=== PATIENT | female | born 1930 | race Caucasian/White ===

== ENCOUNTER → 2016-07-25 | Outpatient (CLI) | payer OTHER, BC ==
[~2016-07-25] MED LIST: CIPROFLOXACIN500 M1 PO; COSOPT EYE DROPS5 ML; DITROPAN PO; LORTAB 5 MG/5001 TA1 PO; OXYBUTYNIN 5 MG5 M1 PO; TRAVATAN 0.004%5 ML; ZANTAC 150MG T150 M1 PO
== END ==
LOC: CAT 10:30
DX: N20.1 Calculus of ureter (principal); R10.30 Lower abdominal pain, unspecified

== ENCOUNTER → 2017-01-01 | Outpatient (CLI) | payer OTHER, BC | LOC: LABMALL 08:45 | DX: D42.9 Neoplasm of uncertain behavior of meninges, unspecified (principal) ==

== ENCOUNTER → 2018-11-12 | Outpatient (CLI) | payer OTHER, BC ==
[~2018-11-12] VITALS: Ht 157.5 cm; Wt 68.0 kg
[~2018-11-12] MED LIST changes: +ALEVE220 MG PO; +COMBIGAN EYE DR10 ML OPHTHALMIC; +ESTRADIOL42.5 GM VAG; +TEMOVATE15 GM TOP; +TRAMADOL 50 MG50 MG PO; +TRAVATAN Z2.5 ML OPHTHALMIC; +ZOVIRAX TOP
--- NOTE | ~2018-11-12 | HPC ---
[facility] [address] [place] [address] PAIN MANAGEMENT CONSULTATION Name: RONALD NOYOLA Room #: REG HUAN Abdias.#: [id number] Admission: 11/12/18 Attend Phys: Roberto Hardwick DO Discharge: Date of : 32 Report #: [id number] THIS REPORT FOR: //name// CC: Luis Felipe Hardwick DATE OF SERVICE: 11/12/2018 REFERRING PHYSICIAN: AVA Vasquez at Neurosurgery. CHIEF COMPLAINT: Neck pain, bilateral upper extremity pain with paresthesias. HISTORY OF PRESENT ILLNESS: As you know, the patient is a very pleasant 88-year-old female who has been referred to our service to discuss treatment options for cervical radiculopathy involving the cervical spine, bilateral upper extremities. The patient indicates pain began somewhere in 10/2017 progressively worsened. 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 She has trialled conservative treatment options, sought physical therapy treatment without improvement. After continued issues with ongoing neck and upper extremity symptoms, she was subsequently referred to see Neurosurgery. She was advised that her symptoms appear to be related to a chronic cervical radiculopathy involving C6 dermatomal distribution and was subsequently referred to our clinic for possible cervical epidural injections. She indicates today pain is continuous, describes the pain as aching, numbness and tingling. Places current pain score 3/10, daily average at 3/10, worst pain has been is 7/10. The patient states that the pain is exacerbated with moving her neck, trying to text using her hands or using her fingers and improves with distraction techniques and repositioning. She has been referred to our service to discuss treatment options for cervical radiculopathy. PAST MEDICAL HISTORY: 1. Rheumatoid arthritis. 2. Gastroesophageal reflux disease. 3. History of cataracts. 4. Glaucoma. 5. Brain neoplasm. 6. Herpes simplex. 7. Lichen sclerosus. 8. Osteoarthritis. PAST SURGICAL HISTORY: 1. section x 3. 2. Cholecystectomy. [address] [address] PAIN MANAGEMENT CONSULTATION Name: RONALD NOYOLA [id number] Admission: 11/12/18 Attend Phys: Roberto Hardwick DO Discharge: Date of : 32 Report #: [id number] 3. Hysterectomy. SOCIAL HISTORY: The patient reports she is a nonsmoker. Denies IV or illicit drug use. Denies any chronic alcohol use. 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 She has been out of work for approximately 20 years. She is not receiving workmen's compensation or is trying to obtain disability benefits. She is accompanied today by a family member. REVIEW OF SYSTEMS: Positive for eye disease, wearing corrective eyewear, cataracts and glaucoma, hearing loss with tinnitus, shortness of breath, walking or lying flat, nocturia, numbness and tingling sensations and chronic neck pain. All other review of systems negative per 12-point review of systems other than those listed in history of present illness. Pain impact score 35/70 indicating moderate interference of daily activities secondary to pain. ALLERGIES: LATEX. CURRENT MEDICATIONS: Travatan one drop each eye per day, Aleve 220 mg once a day, Zovirax ointment apply topically 4 times a day, esterase 0.1 mg applied as directed. Tramadol 50 mg one tab p.o. every 8 hours p.r.n. for pain. IMAGING: MRI cervical spine obtained 08/20/2018 shows degenerative changes throughout the cervical spine. Findings result in mild central canal stenosis at the C5-C6 level, mild right greater than left central canal stenosis at C6-C7, mild left greater than right central canal stenosis at C7-T1. There is a [id number] bilateral neural foraminal stenosis of C5-C6 level, same at C6-C7. PQRS: The patient has known arthritic changes of the cervical spine, lumbar spine. No rheumatoid arthritis, placing pain intensity 3/10. She is a fall risk, but has not had a fall in last 3 months. She is not on blood thinners. She is treated for hypertension. She is not on chronic opioids. She has a low opioid addiction potential. Pain impact score 35/70, moderate interference of daily activities secondary to pain. PHYSICAL EXAMINATION: VITAL SIGNS: Blood pressure 154/71, pulse 70, respiratory rate 16 and unlabored. The patient is 98% on room air. Height 5 feet 2 inches tall, weight 150 pounds, BMI calculated 27.4. GENERAL: Well-developed, well-nourished, well-hydrated 88-year-old female appearing stated age, pain is rated today at around 3/10. HEENT: Normocephalic, atraumatic. Pupils equal, round, reactive to light. Extraocular muscles are intact. Sclerae nonicteric without injection. NEUROLOGIC: Cranial nerves 2-12 grossly intact. Speech fluent. The patient deemed a good historian. LUNGS: Clear, no wheeze, rhonchi or rales. [address] [address] PAIN MANAGEMENT CONSULTATION Name: RONALD NOYOLA Room #: REG HUAN Joseph#: [id number] Admission: 11/12/18 Attend Phys: Roberto Hardwick DO Discharge: Date of : 32 Report #: [id number] CARDIOVASCULAR: Regular. No appreciable gallop, no rub. ABDOMEN: Soft, nontender, nondistended, normoactive bowel sounds. EXTREMITIES: Show no clubbing, no cyanosis, no edema. MUSCULOSKELETAL: Upper extremity strength appears equal and symmetrical 5/5. She is intact to light touch from C5-T1 dermatomes. She has decreased reflexes, but symmetrical at biceps, brachialis and triceps. Spurling's test is positive. Cervical provocation testing is met with increasing axial neck pain. No cervical radicular component with passive and active range of motion of the cervical region. Director [employer] strength is mildly reduced over the C6 myotome. ASSESSMENT: 1. Cervical radiculopathy. 2. Neural foraminal stenosis of the cervical spine. 3. Cervical facet arthropathy. 4. Cervical spondylosis with radiculopathy. PLAN: 1. Based on today's physical exam and history the patient has provided, the description the patient uses in regards to pain as well as the distribution of symptoms she is experiencing and the findings of the recent imaging likely source of the patient's pain is cervical radiculopathy. We discussed with the patient treatment options for cervical radiculopathy. The following was discussed with the patient today. These are very similar to the patient's discussions had with her neurosurgery team at their visit. We discussed physical therapy, stretching exercises and traction techniques as an option for treatment. This in conjunction with ultrasound and electrical stimulation can improve cervical symptoms both from the myofascial standpoint and from the radicular standpoint. We discussed medication management adding neuropathic pain medications and a consistent nonsteroidal anti-inflammatory. We discussed cervical epidural injections for which the patient was referred to our clinic by the Neurosurgery team as well as the surgical options they have discussed in the past. After reviewing the risks and benefits of all the proposed treatment options, the patient chose to remain with conservative treatment trying physical therapy, traction techniques and ultrasound, electrical stimulation techniques. 2. The patient was provided a prescription for physical therapy to begin 3 times a week for 6 weeks. We recommend cervical provocation treatments as well as traction techniques to address cervical radiculopathy. We are also allowing for electrical stimulation and ultrasound to be added to improve overall symptoms. The patient will begin the physical therapy as quickly as possible, review the efficacy at followup visit that we have established in 1 month. I did advise the patient if her symptoms do not improve or her symptoms tend to progress, she can contact our clinic for an earlier return and possible cervical epidural injection. [address] [address] PAIN MANAGEMENT CONSULTATION Name: RONALD NOYOLA Yulissa Room #: REG CLI Jake#: [id number] Admission: 11/12/18 Attend Phys: Roberto Hardwick DO Discharge: Date of : 32 Report #: [id number] 3. We wish to thank nurse practitioner, Irma Serrano for the opportunity to see this patient in consultation. We will keep you apprised of response to treatment as we address suspected cervical radiculopathy and cervical facet arthropathy. Again, we wish to thank you for the opportunity to see the patient in consultation. By: 1707 0214 Roberto Hardwick DO /nt
[2018-11-12 13:29] VITALS: BP 154/71
--- NOTE | 2018-11-12 14:02 | NUR ---
Pain Clinic Assessment: 1. History of Osteoarthritis: * History of Rheumatoid Arthritis: Not Applicable 2. Height: 5 ft. 2 in. 157.5 cm. Weight: 150.0 lb. oz. 68.040 kg. Patient's BMI: 27.4 3. Vital Signs: BP: 154/71 Pulse: 70 Resp: 16 Temp: 02 Sat: 98 ECG Mon: 4. Pain Intensity: 3 5. Fall Risk: Dizziness: Y Needs help standing or walking: Y Fallen in the last 3 months: N Fall risk comments: 6. Patient on Blood Thinner: None 7. History of Hypertension: Y 8. Opioid Therapy greater than 6 weeks: N Opiate Contract Signed: 9. Risk Assessment Tool Provided: 10. Functional Assessment Tool: 11. Recreational Drug Use: Never Drug Type: Tobacco Use: Never Smoker Tobacco Type: Amount or Packs/day: How Many Years: Alcohol Use: Yes Frequency: Special Occasions Quant: 1-2
== END ==
LOC: PAIN 06:56
DX: M47.22 Other spondylosis with radiculopathy, cervical region (principal); M48.02 Spinal stenosis, cervical region; M06.9 Rheumatoid arthritis, unspecified; K21.9 Gastro-esophageal reflux disease without esophagitis; M12.88 Other specific arthropathies, not elsewhere classified, other specified site; Z91.040 Latex allergy status; Z79.899 Other long term (current) drug therapy

== ENCOUNTER → 2019-01-15 | Outpatient (CLI) | payer OTHER, BC ==
[~2019-01-15] VITALS: Ht 154.9 cm; Wt 67.2 kg
[~2019-01-15] MED LIST changes: +MOBIC7.5 MG PO; +NEBULIZER MISCELL; +PROAIR HFA8.5 GM INH; +PROTONIX 20 MG20 MG PO
[2019-01-15 10:29] VITALS: BP 151/65
--- NOTE | 2019-01-15 10:47 | NUR ---
Pain Clinic Assessment: 1. History of Osteoarthritis: * History of Rheumatoid Arthritis: Not Applicable 2. Height: 5 ft. 1 in. 154.9 cm. Weight: 148.2 lb. oz. 67.223 kg. Patient's BMI: 28.0 3. Vital Signs: BP: 151/65 Pulse: 79 Resp: 16 Temp: 02 Sat: 99 ECG Mon: 4. Pain Intensity: 7-LEFT ARM/NECK, 2-RIGHT 5. Fall Risk: Dizziness: N Needs help standing or walking: Y Fallen in the last 3 months: N Fall risk comments: 6. Patient on Blood Thinner: None 7. History of Hypertension: Y 8. Opioid Therapy greater than 6 weeks: N Opiate Contract Signed: 9. Risk Assessment Tool Provided: 10. Functional Assessment Tool: 11. Recreational Drug Use: Never Drug Type: Tobacco Use: Never Smoker Tobacco Type: Amount or Packs/day: How Many Years: Alcohol Use: Yes Frequency: Quant:
--- NOTE | 2019-01-15 10:49 | NUR ---
Pain Clinic Assessment: 1. History of Osteoarthritis: * History of Rheumatoid Arthritis: Not Applicable 2. Height: 5 ft. 1 in. 154.9 cm. Weight: 148.2 lb. oz. 67.223 kg. Patient's BMI: 28.0 3. Vital Signs: BP: 151/65 Pulse: 79 Resp: 16 Temp: 02 Sat: 99 ECG Mon: 4. Pain Intensity: 7-LEFT ARM/NECK, 2-RIGHT 5. Fall Risk: Dizziness: N Needs help standing or walking: Y Fallen in the last 3 months: N Fall risk comments: 6. Patient on Blood Thinner: None 7. History of Hypertension: Y 8. Opioid Therapy greater than 6 weeks: N Opiate Contract Signed: 9. Risk Assessment Tool Provided: LOW 10. Functional Assessment Tool: 11. Recreational Drug Use: Never Drug Type: Tobacco Use: Never Smoker Tobacco Type: Amount or Packs/day: How Many Years: Alcohol Use: Yes Frequency: Quant:
--- NOTE | 2019-01-28 13:04 | HPC ---
[facility] [place] [address] PAIN MANAGEMENT CONSULTATION Name: RONALD NOYOLA Room #: REG [facility].#: [id number] Admission: 01/15/19 Attend Phys: Roberto Hardwick DO Discharge: Date of : 32 Report #: [id number] THIS REPORT FOR: //name// CC: Luis Felipe Hardwick DATE OF SERVICE: 01/15/2019 CHIEF COMPLAINT: Neck pain, bilateral upper extremity pain with paresthesias/bilateral upper extremity pain with paresthesias. HISTORY OF PRESENT ILLNESS: As you know, the patient is a very pleasant 88-year-old female, referred to our service to discuss treatment options for cervical radiculopathy. The patient was seen in our clinic per the request of nurse practitioner, Irma Serrano on 11/12/2018. At that visit, the patient chose conservative treatment. We saw her back in followup visit today where she is requesting a cervical epidural injection. She has been doing physical therapy and feels that it has been somewhat beneficial, but has not improved her pain significantly. She wishes to undergo the cervical epidural injection today. ALLERGIES: PANTOPRAZOLE. CURRENT MEDICATIONS: Albuterol, timolol, naproxen, tramadol and travoprost. SOCIAL HISTORY: The patient is a nonsmoker. Denies IV or illicit drug use. Denies any chronic alcohol use. 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 She is unaccompanied today. IMAGING: No new imaging available. PQRS: The patient has known arthritic changes of the cervical spine, lumbar spine. She has no diagnosis of rheumatoid arthritis. She is placing pain intensity anywhere from 7-10. She is a fall risk, but has not had a fall in last 3 months. She is utilizing ambulatory devices on a p.r.n. basis. She is not on blood thinners, treated for hypertension. She is not on chronic opioids, but does have a low opioid addiction potential. Pain impact score 28/70, [id number] interference of daily activities secondary to pain. PHYSICAL EXAMINATION: VITAL SIGNS: Blood pressure 151/65, pulse 79, respiratory rate 16 and unlabored. The patient is 99% on room air. Height 5 feet 1 inch tall, weight 148.2 pounds, BMI calculated 28. GENERAL: Well-developed, well-nourished, well-hydrated 88-year-old female, appearing her stated age, placing pain today anywhere from 7-12/26. [place] [address] PAIN MANAGEMENT CONSULTATION Name: RONALD NOYOLA Room #: REG [facility].#: [id number] Admission: 01/15/19 Attend Phys: Roberto Hardwick DO Discharge: Date of : 32 Report #: [id number] HEENT: Normocephalic, atraumatic. Pupils equal, round, reactive to light. EXTREMITIES: Show no clubbing, no cyanosis. MUSCULOSKELETAL: Upper extremity strength remains symmetrical 5/5. Intact to light touch from C5-T1 dermatomes. She has decreased reflexes at biceps, brachioradialis and triceps, which is normal for her. Spurling's test is positive. Cervical provocation testing is met with increased pain. ASSESSMENT: 1. Cervical radiculopathy. 2. Neural foraminal stenosis of the cervical spine. 3. Cervical facet arthropathy. 4. Cervical spondylosis with radiculopathy. PLAN: 1. The patient returns today in followup visit having good response to physical therapy, but no significant pain improvement. She has good mobility which has been improved significantly with PT, but continues to experience pain anywhere from 7-10/10. She returns requesting a cervical epidural injection under fluoroscopic guidance to address cervical radiculopathy. We discussed the risks and benefits of a cervical epidural injection. These risks include but are not necessarily limited to bleeding, bruising, infection, worsening pain, no relief of pain, also risk of temporary or permanent muscle weakness, temporary or permanent nerve damage, possible paralysis, post-dural puncture headache and . The patient states understood and wished to proceed. 2. We will see the patient back in followup visit on an as needed basis for possible next in the series of cervical epidural injections. PROCEDURE NOTE DESCRIPTION OF PROCEDURE: C7-T1 cervical epidural steroid injection under fluoroscopic guidance. This is the first procedure of the first series that the patient is undergoing. After obtaining written consent, the patient was taken back to the fluoroscopy suite and placed in a prone position with separate pillows under chest and forehead to decrease cervical lordosis. The skin overlying the cervical area was prepped and draped in an aseptic fashion. The C7-T1 vertebral interspace was identified by AP fluoroscopy. The skin and subcutaneous tissue overlying the target site of injection was anesthetized using 3 mL of 1% lidocaine. A 20-gauge 3-1/2 inch Tuohy needle was advanced under fluoroscopic guidance toward the epidural space using a midline approach. The epidural space was identified using a loss of resistance to air technique. After negative aspiration for heme or cerebrospinal fluid, a total of 1 mL of Omnipaque was injected. A cervical epidurogram was confirmed using AP and oblique [address] [address] PAIN MANAGEMENT CONSULTATION Name: RONALD NOYOLA Room #: REG [facility]#: [id number] Admission: 01/15/19 Attend Phys: Roberto Hardwick DO Discharge: Date of : 32 Report #: [id number] fluoroscopy. After negative aspiration for heme or cerebrospinal fluid, 5 mL of a solution containing 2 mL 40 mg per mL, 80 mg total triamcinolone along with 3 mL of lidocaine 1% was injected in increments. Contrast spread was noted from posterior epidural space. The needle was then retracted approximately assisted and the needle track was flushed with 1 mL of 1% lidocaine. There were no apparent new sensory deficits in the upper extremities present following the procedure. A sterile bandage was placed over the injection site. The heart rate, pulse oximetry and blood pressure were continuously monitored after the procedure. There were no apparent complications. The patient tolerated the procedure well and was carefully escorted in the recovery room in stable condition. After meeting discharge criteria, the patient was discharged home. <ELECTRONICALLY SIGNED> By: Roberto Hardwick DO 01/28/19 1304 [id number] [id number] Roberto Hardwick DO /nt
== END | disposition home or self-care (01) ==
LOC: PAIN
DX: M47.22 Other spondylosis with radiculopathy, cervical region (principal); M99.71 Connective tissue and disc stenosis of intervertebral foramina of cervical region; M12.88 Other specific arthropathies, not elsewhere classified, other specified site; Z88.8 Allergy status to other drugs, medicaments and biological substances; Z79.899 Other long term (current) drug therapy

== ENCOUNTER → 2019-02-04 | Outpatient (CLI) | payer OTHER, BC ==
[~2019-02-04] VITALS: Ht 154.9 cm; Wt 67.2 kg
[2019-02-04 10:48] VITALS: BP 168/71
--- NOTE | 2019-02-04 11:08 | NUR ---
Pain Clinic Assessment: 1. History of Osteoarthritis: BILAT KNEES LOW BACK History of Rheumatoid Arthritis: * SINCE AGE 37. GENERALIZED 2. Height: 5 ft. 1 in. 154.9 cm. Weight: 148.2 lb. oz. 67.223 kg. Patient's BMI: 28.0 3. Vital Signs: BP: 168/71 Pulse: 80 Resp: 16 Temp: 02 Sat: 100 ECG Mon: 4. Pain Intensity: 7 5. Fall Risk: Dizziness: N Needs help standing or walking: Y Fallen in the last 3 months: N Fall risk comments: 6. Patient on Blood Thinner: None 7. History of Hypertension: Y 8. Opioid Therapy greater than 6 weeks: N Opiate Contract Signed: 9. Risk Assessment Tool Provided: MASOOD 10. Functional Assessment Tool: 11. Recreational Drug Use: Never Drug Type: Tobacco Use: Never Smoker Tobacco Type: Amount or Packs/day: How Many Years: Alcohol Use: Yes Frequency: Weekly Quant: 1-2 GLASSES OF WINE
--- NOTE | 2019-02-05 09:19 | HPC ---
[facility] [place] [address] PAIN MANAGEMENT CONSULTATION Name: RONALD NOYOLA Room #: REG [facility].#: [id number] Admission: 02/04/19 Attend Phys: Roberto Hardwick DO Discharge: Date of : 32 Report #: [id number] THIS REPORT FOR: //name// CC: Cam Hardwick DATE OF SERVICE: 02/04/2019 CHIEF COMPLAINT: Neck pain, upper extremity pain with paresthesias. HISTORY OF PRESENT ILLNESS: As you know, the patient is a very pleasant 88-year-old female returning in followup visit to undergo cervical epidural injection under fluoroscopic guidance. We saw the patient in consultation 11/12/2018 where she chose conservative treatment. She followed up with us in 01/15/2019 where she underwent the first in a series of cervical epidural injections, that epidural injection provided greater than 50% improvement in overall pain. She returns today in followup visit. Unfortunately, with recurrence of pain, now reporting pains at 7/10. States pain is constant, aching, numbness and tingling when describing symptoms. She returns today for the second in series of cervical epidural injections. She denies any new injury, new trauma or any changes in medical history since our last visit. ALLERGIES: PANTOPRAZOLE. CURRENT MEDICATIONS: Albuterol, timolol, naproxen, tramadol, travoprost. SOCIAL HISTORY: The patient is a nonsmoker. Denies IV or illicit drug use. Denies any chronic alcohol use. 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 IMAGING: No new imaging available. PQRS: The patient has known arthritic changes of the cervical spine, lumbar spine, bilateral hips and bilateral knees. She does carry a diagnosis of rheumatoid arthritis, stating that she was diagnosed at 37 years of age. She is fall risk, but has not had a fall in last 3 months. She does utilize a roller walker for balance and ambulation. She is not on blood thinners, but is treated for hypertension. She is not on chronic opioids, has a low opioid addiction potential. Pain impact score 28/70, moderate interference of daily activities secondary to pain. PHYSICAL EXAMINATION: VITAL SIGNS: Blood pressure 168/71, pulse 80, respiratory rate 16 and unlabored. The patient is 100% on room air. Height 5 feet 1 inch tall, weight [facility] [address] [place] [address] PAIN MANAGEMENT CONSULTATION Name: RONALD NOYOLA Room #: REG HUAN Jake#: [id number] Admission: 02/04/19 Attend Phys: Roberto Hardwick DO Discharge: Date of : 32 Report #: [id number] 148.2 pounds, BMI calculated 28.0. GENERAL: Well-developed, well-nourished, well-hydrated 88-year-old female, appears her stated age. She is in no acute distress. Pain is rated today at around 7/10. HEENT: Normocephalic, atraumatic. Pupils equal, round, reactive. NEUROLOGIC: Speech is fluent for patient. EXTREMITIES: Show no clubbing, no cyanosis, no edema. MUSCULOSKELETAL: Upper extremity strength is symmetrical, but deconditioned bilaterally. She is intact to light touch from C5 through T1 dermatomes. Spurling's test is met with increasing pain. Cervical provocation testing is met with increased pain mainly with extension and rotation. There is moderate to severe restriction of motion. ASSESSMENT: 1. Cervical radiculopathy. 2. Foraminal stenosis, cervical spine. 3. Cervical facet arthropathy. 4. Cervical spondylosis with radiculopathy. 5. Chronic intractable pain. PLAN: 1. The patient returns today in followup visit having noted excellent benefit with previous cervical epidural injection, but unfortunately, her symptoms have begun to return. She returns today for the next in the series of cervical epidural injections. The patient has been advised of the risks and the benefits of this procedure, states understood and wished to proceed. 2. No medication changes made at today's visit. The patient will continue current medical therapy as prior prescribed. 3. We will see the patient back in followup visit to undergo cervical epidural injection under fluoroscopic guidance on an as needed basis. We did provide the patient with meloxicam 7.5 mg dose 1 tab p.o. b.i.d. to take twice a day with 2 refills, essentially 3 months' worth of medication. She has been taking this medication from her PCP, which has worked well for pain control. We have provided a prescription with the understanding that she can follow up with us or her PCP to remain on this medication. PROCEDURE: C7-T1 cervical epidural steroid injection under fluoroscopic guidance. This is the second procedure of the first series that the patient is undergoing. After obtaining written consent, the patient was taken back to the fluoroscopy suite and placed in a prone position with separate pillows under chest board to decrease cervical lordosis. The skin overlying the cervical area was prepped and draped in an aseptic fashion. The C7-T1 vertebral interspace was identified by AP fluoroscopy. The skin and subcutaneous tissue overlying the target site [address] [address] PAIN MANAGEMENT CONSULTATION Name: RONALD NOYOLA Room #: REG CLTomás Joseph#: [id number] Admission: 02/04/19 Attend Phys: Roberto Hardwick DO Discharge: Date of : 32 Report #: [id number] of injection was anesthetized using 3 mL of 1% lidocaine. A 20-gauge 3-1/2 inch Tuohy needle was advanced under fluoroscopic guidance toward the epidural space using a midline approach. The epidural space was identified using a loss of resistance to air technique. After negative aspiration for heme or cerebrospinal fluid, a total of 1 mL of Omnipaque was injected. A cervical epidurogram was confirmed using AP and oblique fluoroscopy. After negative aspiration for heme or cerebrospinal fluid, 5 mL of a solution containing 2 mL 40 mg/mL 80 mg total triamcinolone along with 3 mL of lidocaine 1% was injected in increments. Contrast spread was noted from post epidural space. The needle was then retracted approximately detention and the needle track was flushed with 1 mL of 1% lidocaine. There were no apparent new sensory deficits in the upper extremities present following the procedure. A sterile bandage was placed over the injection site. The heart rate, pulse oximetry and blood pressure were continuously monitored after the procedure. There were no apparent complications. The patient tolerated the procedure well and was carefully escorted in the recovery room in stable condition. After meeting discharge criteria, the patient was discharged home. <ELECTRONICALLY SIGNED> By: Roberto Hardwick DO 02/05/19 0919 0845 0904 Roberto Hardwick DO /nt
== END | disposition home or self-care (01) ==
LOC: PAIN 06:46
DX: M47.22 Other spondylosis with radiculopathy, cervical region (principal); M48.02 Spinal stenosis, cervical region; G89.29 Other chronic pain; I10 Essential (primary) hypertension; M19.90 Unspecified osteoarthritis, unspecified site; Z98.890 Other specified postprocedural states; Z79.899 Other long term (current) drug therapy; Z88.8 Allergy status to other drugs, medicaments and biological substances

== ENCOUNTER → 2019-06-27 | Outpatient (CLI) | payer OTHER, BC ==
[~2019-06-27] VITALS: Ht 157.5 cm; Wt 63.5 kg
[~2019-06-27] MED LIST changes: +CARBIDOPA-LEVO1 EAC9 PO; +ZIOPTAN 0.00151 EACH OPHTHALMIC
--- NOTE | 2019-06-27 11:01 | P ---
[facility] [address] [place] [address] PROCEDURE REPORT Name: RONALD NOYOLA Room #: REG [facility] Abdias.#: [id number] Admission: 06/27/19 Attend Phys: Shadi Harrell Discharge: Date of : 32 Report #: [id number] THIS REPORT FOR: cc: Luis Felipe Schmitz MD,Shadi Condon MD, MD ~ CC: Cam Schmitz DATE OF SERVICE: 06/27/2019 PROCEDURE PERFORMED: Colonoscopy with biopsies. HISTORY OF PRESENT ILLNESS: The patient is an 88-year-old female who began having abdominal pain, diarrhea and blood in her stools recently. A CT scan of the abdomen and pelvis on 06/23/2019 showed diffuse thickening in the sigmoid colon as well as the descending colon suggesting colitis. Last colonoscopy appears to be in 2013 in which adenomatous polyps were removed. No family history of colon cancer. The patient is feeling better at this time. She continues to have some blood, also some nausea and vomiting at times. She denies any fevers or chills. No cough. Plan is for colonoscopy. DESCRIPTION OF PROCEDURE: The risks and benefits of the procedure were explained to the patient, those risks including but not limited to bleeding, perforation and the risk of sedation. She understood these risks and gave informed consent. Sedation was given using propofol per anesthesia. Next, a digital rectal exam was initially performed, which was normal. Next, using a standard Olympus colonoscope, the scope was placed in the patient's anus and advanced under direct vision to the cecum. The overall prep was good. The cecum and ileocecal valve were normal in appearance. There was a diffuse colitis noted throughout the ascending, transverse, descending and sigmoid colon, multiple biopsies were obtained. Stool was also obtained and sent for further studies. There was no evidence of active bleeding. Multiple diverticula were noted in the sigmoid colon as well, but no evidence of inflammation other than the colitis. The rectal mucosa showed a mild colitis, but more normal in appearance. On retroflexion, small nonbleeding internal hemorrhoids were noted. At this point, the scope was then withdrawn and the procedure terminated. The patient tolerated the procedure well. IMPRESSION: Colitis involving most of the colon as described above. This may be secondary to infectious, biopsies were obtained, need to rule out the possibility of ischemic colitis as well. Stool samples were also sent for further studies. RECOMMENDATIONS: [address] [address] PROCEDURE REPORT Name: RONALD NOYOLA Room #: REG HUAN FrankRonYulissaRon#: [id number] Admission: 06/27/19 Attend Phys: Shadi Harrell Discharge: Date of : 32 Report #: [id number] 1. Await biopsy results. 2. We will start Flagyl. Thank you for allowing me to participate in her care. <ELECTRONICALLY SIGNED> By: Shadi Belcher MD 06/27/19 1101 0902 0910 Shadi Belcher MD /nt
--- NOTE | 2019-06-30 15:07 | PATH ---
[facility] [place] [address] [place] [address] PATHOLOGY RPT PROCEDURE Name: SOPHIA NOYOLA Room #: REG [facility] M.R.#: [id number] Admission: 06/27/19 Date of : 32 Discharge: Report #: [id number] Path Case #: [id number] [facility] Accession Number: [id number] . 01 Material submitted: . PART A: colon - BIOPSY OF TRANSVERSE COLON COLITIS TO RULE OUT IS CHEMIC COLITIS. Modifiers: transverse PART B: colon - BIOPSY OF DESCENDING COLON COLITIS TO RULE OUT ISCHEMIC COLITIS. Modifiers: descending PART C: sigmoid colon - BIOPSY OF SIGMOID COLITIS TO RULE OUT ISCHEMIC COLITIS . 01 Clinical history: . Pre-op diagnosis: Colitis Post-op diagnosis: Diverticulosis; colitis . 02 Diagnosis: A. Large intestine, transverse colon, endoscopic biopsy: - Moderate active colitis present within all fragments sampled. - Negative for dysplasia or malignancy. . B. Large intestine mucosa, descending colon colitis, endoscopic biopsy: - Moderate active colitis present within all fragments sampled. - Negative for dysplasia or malignancy. . C. Large intestine mucosa, sigmoid colitis, endoscopic biopsy: - Moderate active colitis present within all fragments sampled. - Negative for dysplasia or malignancy. (IUV:debbie; 06/30/2019) QMS 06/30/2019 1430 Local . 02 Comment: Examination shows a markedly expanded lamina propria associated with cryptitis, surface epithelial inflammation, as well as numerous crypt abscesses. Viral inclusions, or parasitic organisms are not identified. Scattered rare focus shows lamina propria fibrosis. Fibrin thrombi are not identified within the vessels. Architectural abnormalities, or extensive surface ulcerations are not identified as well. Overall findings are suggestive of a moderate active colitis with the differential diagnosis including an active inflammatory bowel disease, active diverticulitis, medication/drug induced colitis, infectious-type of colitis, as well as an ongoing ischemic colitis (morphologic features are not typical of ischemic colitis). Lack of crypt ghosts, apoptotic crypts, lamina propria fibrosis, as well as fibrin thrombi are features suggesting against ischemic colitis. Please correlate clinically. (IUV:debbie; 06/30/2019 . [address] [address] PATHOLOGY RPT PROCEDURE Name: SOPHIA NOYOLA Room #: REG HUAN Joseph#: [id number] Admission: 06/27/19 Date of : 32 Discharge: Report #: [id number] Path Case #: [id number] Electronically signed: . Earnestine Pastrana MD, Pathologist NPI- [id number] . 01 Gross description: . A. The specimen is received in formalin, labeled "Sophia Brown, biopsy of transverse colon colitis to R/O ischemic colitis". Received are four segments of pale sanchez soft tissue ranging in size from 0.3 to 0.4 cm in maximum dimensions. The specimen is submitted entirely in cassette A1. . B. The specimen is received in formalin, labeled "Sophia Brown, biopsy of descending colon colitis to R/O ischemic colitis". Received are four segments of pale sanchez soft tissue ranging in size from 0.3 to 0.4 cm in maximum dimensions. The specimen is submitted entirely in cassette B1. . C. The specimen is received in formalin, labeled "Sophia Brown, biopsy of sigmoid colitis to R/O ischemic colitis". Received are five segments of pale sanchez soft tissue ranging in size from 0.3 to 0.6 cm in maximum dimensions. The specimen is submitted entirely in cassette C1. (CAA; 06/27/2019) QAC/QAC 06/27/2019 1321 Local . 02 Pathologist provided ICD-10: K52.9, K57.90 . 02 CPT . 001829, 187073, 688637 Specimen Comment: A courtesy copy of this report has been sent to [phone] Specimen Comment: Report sent to Performed at: [address], [place] [id number] MD Ilya Bryson MD Phone: [phone] Performed at: [address] [id number] MD Earnestine Pastrana MD Phone: [phone]
== END | disposition home or self-care (01) ==
LOC: GI 07:21
DX: R10.9 Unspecified abdominal pain (principal); K52.9 Noninfective gastroenteritis and colitis, unspecified; K57.30 Diverticulosis of large intestine without perforation or abscess without bleeding; K64.8 Other hemorrhoids; K21.9 Gastro-esophageal reflux disease without esophagitis; Z90.49 Acquired absence of other specified parts of digestive tract; Z90.710 Acquired absence of both cervix and uterus; Z98.890 Other specified postprocedural states; Z79.899 Other long term (current) drug therapy
CPT/HCPCS: 62110; 62900

== ENCOUNTER 2019-12-04 09:08 | Inpatient (IN) | payer OTHER, BC ==
[2019-12-04] VITALS (7 sets, daily range): BP systolic 101–161; BP diastolic 49–82
[~2019-12-04] VITALS: Ht 154.9 cm; Wt 58.1 kg
[2019-12-04 09:47] LABS: URINE BILIRUBIN NEGATIVE (Negative); URINE BLOOD NEGATIVE (Negative); URINE CLARITY CLEAR; URINE COLOR YELLOW; URINE GLUCOSE-RANDOM* NEGATIVE (Negative); URINE KETONES TRACE (Negative); URINE LEUKOCYTES-REFLEX NEGATIVE (Negative); URINE NITRITE-REFLEX NEGATIVE (Negative); URINE PROTEIN (DIPSTICK) NEGATIVE (Negative); URINE SPECIFIC GRAVITY 1.025 (1.005-1.035); URINE UROBILINOGEN 0.2 E.U./dl (0.2-1.0)
[2019-12-04 10:52] LABS: ABSOLUTE NEUTROPHILS 6.5 thou/uL (1.4-8.2); BASOPHILS 0.5 % (0.0-2.0); EOSINOPHILS 0.3 % (0.0-3.0); HEMATOCRIT 40.4 % (37.0-47.0); HEMOGLOBIN 13.3 gm/dL (12.0-15.0); LYMPHOCYTES 21.6 % (24.0-44.0); MCH 32.6 pg (26.0-34.0); MCV 98.9 fL (80.0-100.0); MONOCYTES 5.7 % (1.0-8.0); POLYS 71.9 % (36.0-66.0); RBC 4.09 mil/uL (4.20-5.00); RDW 13.5 % (10.5-14.5); WBC 9.1 thou/uL (4.0-11.0)
[2019-12-04 11:17] LABS: ANION GAP 9 mmol/L (7-16); BUN 16 mg/dL (7-18); CALCIUM 9.1 mg/dL (8.5-10.1); CHLORIDE 104 mmol/L (98-107); CO2 27 mmol/L (21-32); CREATININE 0.8 mg/dL (0.6-1.0); GLUCOSE 133 mg/dL (74-106); SODIUM 140 mmol/L (136-145)
[2019-12-04 11:23] LABS: POTASSIUM 4.5 mmol/L (3.5-5.1)
[2019-12-04 11:29] LABS: ALBUMIN 3.5 g/dL (3.4-5.0); LIPASE 78 U/L (73-393); SGOT 20 U/L (15-37); SGPT 10 U/L (30-65); TOTAL BILIRUBIN 0.7 mg/dL (0.2-1.0); TOTAL PROTEIN 6.7 g/dL (6.4-8.2); TROPONIN-I <0.06 ng/mL (<0.06)
--- NOTE | 2019-12-04 11:29 | NUR ---
UNABLE TO OBTAIN IV ACCESS-IV CONTACTED
[2019-12-04 12:26] LABS: PLATELET COUNT 100 thou/uL (150-400); PLATELET ESTIMATE NORMAL
--- NOTE | 2019-12-04 16:05 | EKG ---
[facility] [address] [place] [address] ELECTROCARDIOGRAM REPORT Name: RONALD NOYOLA Room #: 459- ADM IN M.R.#: [id number] Admission: 12/04/19 Attend Phys: Chuy Dao MD Discharge: Date of : 32 Report #: [id number] THIS REPORT FOR: cc: Luis Felipe Schmitz MD, Christopher B. MD Santiago, Patrick MD [facility] ~ THIS REPORT FOR: //name// [facility] ED Test Date: 2019-12-04 Test Time: 10:12:49 Pat Name: RONALD NOYOLA Department: Room: [facility] Gender: F Director Of Admissions: CHICA PIMENTEL : 1930 Requested By: Christiano Amaral Order Number: [id number] MD: Andrew Gao Measurements Intervals [place] Rate: 70 P: 48 NV: 198 QRS: 2 QRSD: 98 T: 53 QT: 410 QTc: 443 Interpretive Statements Sinus rhythm Abnormal R-wave progression, early transition Compared to ECG 10/10/2011 07:58:59 Sinus bradycardia no longer present Electronically Signed On 12-04-2019 16:05:11 CDT by Andrew Gao [email or web address] <ELECTRONICALLY SIGNED> By: Andrew Gao MD, [facility] 12/04/19 1605 1012 1012 Andrew Gao MD, [facility] /EPI
--- NOTE | 2019-12-04 17:58 | NUR ---
PATIENT ADMITTED FROM ER WITH FAILED OP TX, PARKINSON, ABDOMEN PAIN. PATIENT C/O PAIN WITH ABDOMEN AREA, FENTANYL 50 MCG IV, PATIENT HAS LEFT UPPER ARM IV IN PLACE. NS AT 125CC/HR. UP WITH SBA. DAUGHTER AT BEDSIDE. PATIENT IS NPO, WILL HAVE CTA PROCEDURE PER DR ROWELL. ADMISSION COMPLETED, WILL REPORT OF TO THE NIGHTSHIFT NURSE.
[2019-12-05 05:10] VITALS: BP 154/70
[2019-12-05 07:20] VITALS: BP 164/85
--- NOTE | 2019-12-05 07:43 | NUR ---
ASSUMED PT CARE AROUND 193O. AX0X4. [place] OF PICURIS. VSS. KEPT NPO FOR GI PROCEDURE. NO S/S ACUTE DISTRESS NOTED OR REPORTED AT THIS TIME. CARE TRANSFERRED TO AM RN AT THIS TIME.
--- NOTE | 2019-12-05 15:51 | NUR ---
ASSUMED PT CARE THIS AM. PT VITAL SIGNS STABLE. PT SENT FOR AN EGD THIS AM. PT REPORTS NO NAUSEA OR VOMITING. DIARRHEA REPORTED THIS AM. PT AMBULATES TO THE BATHROOM WITH HER WALKER AND GAIT BELT. SCDS IN PLACE. PT A&OX4, AND IS HARD OF HEARING. PT IS PLEASANT AND COOPERATIVE TO STAFF. WILL CONTINUE TO MONITOR.
[2019-12-05 19:54] VITALS: BP 141/64
--- NOTE | 2019-12-06 04:38 | NUR ---
VSS-AFEBRILE. ALERT AND ORIENTED X 4. OCCASIONAL C/O ABDOMINAL PAIN THAT IS WELL RELIEVED WITH IV PAIN MEDICATION. RESTED WELL THROUGH NIGHT. FALL PRECAUTIONS IN PLACE.
[2019-12-06 08:01] VITALS: BP 148/68
[2019-12-06 15:44] VITALS: BP 179/57
[2019-12-06 17:41] LABS: HEMATOCRIT 36.6 % (37.0-47.0); HEMOGLOBIN 12.2 gm/dL (12.0-15.0); MCH 32.8 pg (26.0-34.0); MCHC 33.3 g/dL (28.0-37.0); MCV 98.5 fL (80.0-100.0); RBC 3.72 mil/uL (4.20-5.00); RDW 13.8 % (10.5-14.5); WBC 6.1 thou/uL (4.0-11.0)
[2019-12-06 17:44] LABS: CALCIUM 8.3 mg/dL (8.5-10.1); CREATININE 0.8 mg/dL (0.6-1.0); POTASSIUM 3.4 mmol/L (3.5-5.1)
[2019-12-06 19:30] VITALS: BP 179/73
--- NOTE | 2019-12-06 19:41 | NUR ---
Assumed pt care this am, VS stable. DAughter was atthe bed side, pain in the abdomen was noted after pt had taken coffee that was brought in by the daughter. Pain was managed with medication, daughter requested that fentanyl be changed since this would make the mother confused. INformed MD new orders received. Seen by Dr. Dao, labs ordered. POC followed, partial relief is noted for pain. Endorsed to the night nuse. Pt was able to ambulate with a steady gait with her walker and stayed on her recliner for most of the day.
--- NOTE | 2019-12-07 02:29 | NUR ---
VSS-AFEBRILE. ALERT AND ORIENTED X 4. OCCASIONAL C/O ABDOMINAL PAIN THAT IS WELL RELIEVED WITH PRESCRIBED IV AND PO PAIN MEDICATIONS. OOB WITH SBA TO USE RESTROOM, STEADY ON FEET. FALL PRECAUTIONS IN PLACE, CALLS APPROPRIATELY FOR ANY NEEDED ASSISTANCE.
[2019-12-07 08:47] VITALS: BP 151/68
[2019-12-07 15:51] VITALS: BP 151/64
[2019-12-07 19:32] VITALS: BP 153/80
--- NOTE | 2019-12-07 20:42 | NUR ---
ASSUMED PT CARE THIS AM. PT VITAL SIGNS STABLE. PT A&OX4, BUT WITH SOME CONFUSION NOTED DURING THE SHIFT. PT AMBULATED TO THE BATHROOM, AND CALLED APPROPRIATELY WHEN NEEDED. PT ON CLEAR LIQUIDS. PT ABLWE TO CHANGE POSITIONS INDEPENDENTLY, HEELS OFFLOADED. PT WAS GIVEN A BATH THIS AM BY WEATHER STRIP INSTALLER. ENDORSED TO NIGHT NURSE.
--- NOTE | 2019-12-08 03:42 | NUR ---
ASSUMED PT CARE AROUND 1930. AXOX3 WITH CONFUSION AND IMPULSIVITY TO GET TO THE [facility] D/T BOWEL PREP. VSS. KEPT NPO FOR PROCEDURE IN AM. NO S/S ACUTE DISTRESS NOTED OR REPORTED AT THIS TIME. WILL CONT TO MONITOR FOR ANY CHANGES IN CONDITION.
[2019-12-08 08:00] VITALS: BP 189/83
--- NOTE | 2019-12-08 14:44 | NUR ---
PT ADMITTED RELATED TO ABD PAIN, DIARRHEA, PARKINSONS, FAILED OP TREATMENT. CM REVIEWED CHART AND SPOKE WITH CARE TEAM. CM CALLED INTO PT'S ROOM THIS AM AND PT'S DTR ROBYN ANSWERED. SHE INDICATED THAT PT RESIDES IN [facility] AT [facility]. 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 THEY INDICATED THAT PT HAD THERAPY THROUGH [facility] USED IN THE PAST. CM CALLED COMMUNITY AND THEY INDICATED THAT THEY HAVE A COMPANY CALLED [employer] [facility] BUT SHE WASN'T SURE IF THEY WERE A LICENSED HH PROVIDER. DTR INDICATED THAT HOPE WOULD BE FOR PT TO RETURN HOME ONCE MEDICALLY STABLE. CM TO FOLLOW INDICATED WITH DC PLANNING.
[2019-12-08 15:00] VITALS: BP 153/72
--- NOTE | 2019-12-08 18:49 | NUR ---
PT A&OX4, VSS, FAHEEM PAIN. FAMILY AT BEDSIDE. PATIETN DOWN FOR MRI AND ULTRASOUND TODAY. NO SIGNS OF DISTRESS. WILL CONTINUE TO MONITOR.
[2019-12-08 20:02] VITALS: BP 138/61
--- NOTE | 2019-12-09 05:31 | NUR ---
ASSUMED PT CARE AROUND 1930. AXOX3 WITH INTERMITTENT CONFUSION. KEPT NPO FOR ABD DOPPLER IN AM. NO S/S ACUTE DISTRESS NOTED OR REPORTED AT THIS TIME. WILL CONT TO MONITOR FOR ANY CHANGES IN CONDITION.
[2019-12-09 07:30] VITALS: BP 138/71
[2019-12-09] MEDS ORDERED: HYOSCYAMINE0.125 M1 PO (09:59)
[2019-12-09] MEDS ORDERED: ACETAMINOPHEN325 M1 PO (09:59)
[2019-12-09] MEDS ORDERED: TRAMADOL 50 MG50 MG PO (09:59)
[2019-12-09] MEDS ORDERED: PEPCID20 MG PO (10:00)
[2019-12-09] MEDS ORDERED: AUGMENTIN600 MG/5 M PO (10:01)
[2019-12-09 11:36] VITALS: BP 138/61
--- NOTE | 2019-12-09 11:38 | NUR ---
CARE TEAM INDICATED THAT PT IS MEDICALLY STABLE TO DISHCARGE HOME THIS DAY. HOME HEALTH PT AND OT ORDERED. CM SPOKE WITH PT'S DTR JOAQUIN AND THEY ARE AWARE AND AGREEABLE WITH DC AND HH SERVICES. THEY INDICATED NO PREFERENCE FOR PROVIDER. REFERRAL SENT TO [facility]. AWAITING RESPONSE. PT'S DTR TO PROVIDE TRANSPORT HOME THIS DAY. NO OTHER CM INTERVENTION INDICATED. CASE CLOSED.
--- NOTE | 2019-12-09 12:01 | NUR ---
Pt states that she is not in pain, and is excited to go back to independent living. Pt daughter at bedside apticipating discharge instuctions. Pt resting comfortably in bed.
[2019-12-09 12:02] VITALS: BP 138/61
--- NOTE | 2019-12-09 12:12 | NUR ---
I have reviewed the student's documentation.
--- NOTE | 2019-12-09 14:16 | NUR ---
FAXED REFERRAL TO [facility] SPOKE WITH LUIS IN INTAKE SHE RECEIVED REFERRAL AND CAN ACCEPT FOR HH. FAXED DC ORDERS/SUMMARY RECEIVED CONFIRMATION AND LUIS WILL CALL TO ARRANGE VISITS.
== END 2019-12-09 13:25 | disposition home health service (06) | DRG 392 ==
LOC: ER 09:08 → EROBS 12:03 → 4W 12:03
PROVIDERS: Emergency Medicine; ADMIT Surgery; ATTEND Surgery
PROC: 0DJ08ZZ Inspection of Upper Intestinal Tract, Via Natural or Artificial Opening Endoscopic (ICD-10-PCS; principal; 2019-12-05)
PROC: 0DJD8ZZ Inspection of Lower Intestinal Tract, Via Natural or Artificial Opening Endoscopic (ICD-10-PCS; 2019-12-08)
DX: K57.32 Diverticulitis of large intestine without perforation or abscess without bleeding (principal); K64.8 Other hemorrhoids; K21.9 Gastro-esophageal reflux disease without esophagitis; K59.00 Constipation, unspecified; Z66 Do not resuscitate; R63.4 Abnormal weight loss; G20 Parkinson's disease; G47.00 Insomnia, unspecified; K58.0 Irritable bowel syndrome with diarrhea; Z20.828 Contact with and (suspected) exposure to other viral communicable diseases; K29.70 Gastritis, unspecified, without bleeding; Z90.49 Acquired absence of other specified parts of digestive tract; Z90.710 Acquired absence of both cervix and uterus; Z88.8 Allergy status to other drugs, medicaments and biological substances; Z79.899 Other long term (current) drug therapy; Z68.24 Body mass index [BMI] 24.0-24.9, adult
CPT/HCPCS: 10040; 62110; 62900; 70005

== ENCOUNTER → 2020-02-18 | Outpatient (CLI) | payer OTHER, BC ==
[~2020-02-18] MED LIST changes: +ACETAMINOPHEN325 M1 PO; +AUGMENTIN600 MG/5 M PO; +HYOSCYAMINE0.125 M1 PO; +PEPCID20 MG PO
== END ==
LOC: RAD 13:52
PROVIDERS: ATTEND Internal Medicine
DX: R19.5 Other fecal abnormalities (principal); R14.0 Abdominal distension (gaseous)